=== PATIENT | female | born 1955 | race Caucasian/White ===

== ENCOUNTER → 2023-07-14 07:29 | Outpatient (REF) | payer MEDICARE, OTHER, SELFPAY ==
[2023-07-14 08:28] LABS: HDL Cholesterol 65 mg/dl; LDL Cholesterol, Calculated 219 mg/dl; Total Cholesterol 315 mg/dl (50-199); Triglyceride 155 mg/dl (10-149); Very Low Density Lipoprotein 31 mg/dl (0-30)
== END ==
LOC: REG 07:29
PROVIDERS: ATTENDING PHYSICIAN Internal Medicine Cardiovascular Disease; FAMILY PHYSICIAN Family Medicine
DX: E78.2 Mixed hyperlipidemia (principal)
CPT/HCPCS: 36415; 80061

== ENCOUNTER → 2023-07-18 09:19 | Outpatient (REF) | payer MEDICARE, OTHER, SELFPAY | LOC: DHCBS MAIN 09:19 | PROVIDERS: ATTENDING PHYSICIAN Internal Medicine Cardiovascular Disease; FAMILY PHYSICIAN Internal Medicine | DX: R06.09 Other forms of dyspnea (principal) | CPT/HCPCS: 93306 ==

== ENCOUNTER → 2023-08-07 07:30 | Outpatient (REF) | payer MEDICARE, OTHER, SELFPAY | LOC: RAD 07:30 | PROVIDERS: ATTENDING PHYSICIAN Internal Medicine Critical Care Medicine; FAMILY PHYSICIAN Family Medicine | DX: R91.8 Other nonspecific abnormal finding of lung field (principal) | CPT/HCPCS: 71250 ==

== ENCOUNTER → 2023-08-15 10:21 | Outpatient (REF) | payer MEDICARE, OTHER, SELFPAY | LOC: RAD 10:21 | PROVIDERS: ATTENDING PHYSICIAN Internal Medicine Rheumatology; FAMILY PHYSICIAN Family Medicine | DX: M81.0 Age-related osteoporosis without current pathological fracture (principal) | CPT/HCPCS: 77080 ==

== ENCOUNTER → 2023-08-22 14:04 | Outpatient (REF) | payer MEDICARE, OTHER, SELFPAY | LOC: RAD 14:04 | PROVIDERS: ATTENDING PHYSICIAN Obstetrics & Gynecology Gynecologic Oncology; FAMILY PHYSICIAN Family Medicine | DX: C50.912 Malignant neoplasm of unspecified site of left female breast (principal); D50.9 Iron deficiency anemia, unspecified; Z15.01 Genetic susceptibility to malignant neoplasm of breast; Z15.02 Genetic susceptibility to malignant neoplasm of ovary; Z12.4 Encounter for screening for malignant neoplasm of cervix; R19.00 Intra-abdominal and pelvic swelling, mass and lump, unspecified site | CPT/HCPCS: 74177; Q9967 ==

== ENCOUNTER → 2023-08-24 07:52 | Outpatient (REF) | payer MEDICARE, OTHER, SELFPAY ==
[2023-08-24 08:51] LABS: % Basophils 1.1 % (0-2); % Eosinophils 7.8 % (0-6); % Immature Granulocytes 0.1 % (0-0.5); % Lymphocytes 23.6 % (20.5-51.1); % Monocytes 10.6 % (1.7-9.3); % Neutrophils 56.8 % (42.2-75.2); Absolute Basophils 0.1 10^3/uL (0-0.2); Absolute Eosinophils 0.6 10^3/uL (0-0.7); Absolute Lymphocytes 1.8 10^3/uL (1.2-3.4); Absolute Monocytes 0.8 10^3/uL (0.1-0.6); Absolute Neutrophils 4.3 10^3/uL (1.4-6.5); Hematocrit 40.5 % (37.0-47.0); Mean Corp Hgb Conc. 34.6 g/dL (33.0-37.0); Mean Corpuscular Hgb 30.1 pg (27.0-31.0); Mean Corpuscular Volume 87.1 fL (81.0-99.0); Mean Platelet Volume 10.6 fL (7.4-10.4); Nucleated Red Blood Cells % 0 %; Platelet Count 289 10^3/uL (130-400); Red Blood Cell Count 4.65 10^6/uL (4.20-5.40); Red Cell Dist. Width 13.5 % (11.5-14.5); White Blood Cell Count 7.5 10^3/uL (4.8-10.8)
[2023-08-24 09:42] LABS: ALT (SGPT) 23 U/L (0-35); AST (SGOT) 26 U/L (14-36); Albumin 4.4 g/dl (3.5-5.0); Alkaline Phosphatase 63 U/L (38-126); Blood Urea Nitrogen 22 mg/dl (7-17); Calcium 9.7 mg/dl (8.4-10.2); Carbon Dioxide 26 mmol/L (22-30); Chloride 105 mmol/L (98-107); Glucose 126 mg/dl (70-99); HDL Cholesterol 76 mg/dl; LDL Cholesterol, Calculated 224 mg/dl; Sodium 139 mmol/L (135-145); Total Bilirubin 0.5 mg/dl (0.2-1.3); Total Cholesterol 322 mg/dl (50-199); Total Protein 7.5 g/dl (6.3-8.2); Triglyceride 112 mg/dl (10-149); Very Low Density Lipoprotein 22 mg/dl (0-30); eGFR > 60.00
[2023-08-24 09:48] LABS: Free T4 1.31 ng/dl (0.78-2.19); Potassium 4.5 mmol/L (3.5-5.1)
[2023-08-24 13:15] LABS: Glycohemoglobin (HgbA1c) 6.1 % (4.0-5.6)
[2023-08-24 19:25] LABS: CA 125 9.5 U/mL (0-35)
== END ==
LOC: REG 07:52
PROVIDERS: ATTENDING PHYSICIAN Internal Medicine Cardiovascular Disease; FAMILY PHYSICIAN Family Medicine; REFERRING PHYSICIAN Obstetrics & Gynecology Gynecologic Oncology
DX: C50.912 Malignant neoplasm of unspecified site of left female breast (principal); D50.9 Iron deficiency anemia, unspecified; Z15.01 Genetic susceptibility to malignant neoplasm of breast; Z12.4 Encounter for screening for malignant neoplasm of cervix; R19.00 Intra-abdominal and pelvic swelling, mass and lump, unspecified site; E78.49 Other hyperlipidemia; Z15.09 Genetic susceptibility to other malignant neoplasm; E04.1 Nontoxic single thyroid nodule; R73.01 Impaired fasting glucose; R97.1 Elevated cancer antigen 125 [CA 125]
CPT/HCPCS: 36415; 80053; 80061; 82248; 83036; 84439; 84443; 85025; 86304

== ENCOUNTER → 2023-08-28 12:42 | Outpatient (REF) | payer MEDICARE, OTHER, SELFPAY | LOC: HWRAD 12:42 | PROVIDERS: ATTENDING PHYSICIAN Obstetrics & Gynecology Gynecologic Oncology; FAMILY PHYSICIAN Family Medicine | DX: C50.912 Malignant neoplasm of unspecified site of left female breast (principal); D50.9 Iron deficiency anemia, unspecified; Z15.01 Genetic susceptibility to malignant neoplasm of breast; Z15.02 Genetic susceptibility to malignant neoplasm of ovary; Z12.4 Encounter for screening for malignant neoplasm of cervix; R19.00 Intra-abdominal and pelvic swelling, mass and lump, unspecified site | CPT/HCPCS: 76830; 76856 ==

== ENCOUNTER → 2023-10-12 07:04 | Outpatient (REF) | payer MEDICARE, OTHER, SELFPAY ==
[2023-10-12] MEDS: LEXISCAN 0.400000000000000022 MG IV (09:06)
== END ==
LOC: RCS 07:04
PROVIDERS: ATTENDING PHYSICIAN Internal Medicine Cardiovascular Disease; FAMILY PHYSICIAN Family Medicine
DX: Z01.810 Encounter for preprocedural cardiovascular examination (principal); I10 Essential (primary) hypertension; I44.2 Atrioventricular block, complete; Z95.0 Presence of cardiac pacemaker
CPT/HCPCS: 78452; 93017; A9500; J2785

== ENCOUNTER 2023-10-31 05:50 | Day surgery (SDC) | payer MEDICARE, OTHER, SELFPAY ==
[2023-10-31] VITALS (13 sets, daily range): BP systolic 106–137; BP diastolic 53–82; BMI 29.2
[2023-10-31] MEDS: NORMOSOL-R 1000 IV (06:25)
[2023-10-31] MEDS: MOBIC 15 MG PO (06:27)
[2023-10-31] MEDS: TYLENOL 1000 MG PO (06:27)
[2023-10-31] MEDS: NEURONTIN 300 MG PO (06:27)
[2023-10-31] MEDS: HEPARIN 5000 UNITS SC (06:29)
[2023-10-31 06:52] LABS: Hematocrit 42.5 % (37.0-47.0); Hemoglobin 14.4 g/dL (12.0-16.0); Mean Corp Hgb Conc. 33.9 g/dL (33.0-37.0); Mean Corpuscular Hgb 30.1 pg (27.0-31.0); Mean Corpuscular Volume 88.9 fL (81.0-99.0); Mean Platelet Volume 10.6 fL (7.4-10.4); Platelet Count 221 10^3/uL (130-400); Red Blood Cell Count 4.78 10^6/uL (4.20-5.40); Red Cell Dist. Width 14.2 % (11.5-14.5); White Blood Cell Count 9.1 10^3/uL (4.8-10.8)
[2023-10-31] MEDS: TRANSDERM-SCOP 1 PATCH TRANSDERM (06:53)
--- NOTE | 2023-10-31 08:38 | OR.RPT ---
Operative Report
Operative Report
Pre Op Diagnosis: BRCA1 Mutation, Desire for Risk reducing surgery
Post Op Diagnosis: same
Procedure: Laparocopic Bilateral salpingo oophorectomy, washings, Dilation and curettage
Surgeon: Reggie Multani MD
Patrol Agent: Dimitri Wade PA-C
Anesthesia General
Procedure in detail: This patient was brought to the operating room for risk reducing salpingo-oophorectomy. Upon arrival to the operating room she was placed in supine position, general anesthesia was administered she was intubated without any
difficulty. She was placed in lithotomy position using yellowfin stirrups. She was prepped on the abdomen perineum and vagina, arms were wrapped in padding and tucked along the sides. The patient was draped. Timeout procedure was carried out.
She received Ancef prophylactically and had received DVT prophylaxis with heparin. Will catheter was placed under sterile condition to drain the bladder. The cervix was visualized and grasped on the anterior lip. Cervical canal was dilated, the
uterus sounded to 7-1/2 cm. Sharp curettage of the endometrial cavity was obtained and a small polyp was removed. Uterine manipulator with a 2.5 cm CHRISTY ring was placed around the cervix. Attention was turned abdominally, the patient has had prior
abdominoplasty. Veress needle was inserted 5 mm skin incision just above the umbilicus. Peritoneal cavity was insufflated with CO2 gas up to pressure of 15 mmHg. 5 mm port was placed and laparoscopic evaluation of the abdomen was performed. In
the upper abdomen both diaphragms are normal, liver spleen right and left paracolic gutters and omentum are normal. Appendix is visualized and is normal. Bilateral tubes and ovaries appear atrophic with no evidence of implants involving pelvic
organs. Uterus appears normal. 5 mm port was placed in the right lower quadrant and at 11 mm port was placed in the left lower quadrant. The adhesions of the sigmoid colon to the left pelvis was taken down. Posterior leaf of the broad ligament
was dissected open bilaterally and the retroperitoneal spaces were identified and we created a window between the ureter and IP ligaments bilaterally. Both IP ligaments were sealed 3 times and divided. Tubes and ovaries were removed in its
entirety down to the cornua of the uterus and sealed and divided from the uterus. They were placed in right and left endoscopic bags and retrieved through the left lower quadrant. Pelvic washings had already been collected. We examined all the
operative sites and establish good hemostasis. We released the pneumoperitoneum. Specimens were handed over to pathology. The fascia in the 11 mm port was closed with a [id number] suture of 0 Vicryl. Skin incisions were closed with 4-0
Monocryl in a subcuticular fashion. Marcaine was injected in all port incisions. Will catheter and uterine manipulator was removed. The patient was awakened extubated and returned back to recovery room stable awake and extubated condition.
Counts of laps instruments and needle was correct x 2. I was present and scrubbed for entire procedure as dictated above.
Surgical count: Correct
Disposition: PACU, stable, extubated
--- NOTE | 2023-10-31 10:46 | PTCARENOTE ---
Patient got up once to void and could not void. Patient dressed and hooked back up to the IV fluids. Patient instructed to increase water/fluid intake. Will monitor patient.
== END 2023-10-31 12:09 | disposition home or self-care (01) ==
LOC: SDS 05:50
PROVIDERS: ATTENDING PHYSICIAN Obstetrics & Gynecology Gynecologic Oncology
DX: Z15.02 Genetic susceptibility to malignant neoplasm of ovary (principal); Z15.01 Genetic susceptibility to malignant neoplasm of breast; C50.912 Malignant neoplasm of unspecified site of left female breast; N73.9 Female pelvic inflammatory disease, unspecified
CPT/HCPCS: 58661; 58120; 88305; 85027; 86850; 86900; 86901; 88112

== ENCOUNTER → 2023-12-07 12:43 | Outpatient (REF) | payer MEDICARE, OTHER, SELFPAY | LOC: HWRAD 12:43 | PROVIDERS: ATTENDING PHYSICIAN Family Medicine | DX: R49.0 Dysphonia (principal); R49.9 Unspecified voice and resonance disorder | CPT/HCPCS: 76536 ==

== ENCOUNTER → 2024-01-11 07:08 | Outpatient (REF) | payer MEDICARE, OTHER, SELFPAY ==
[2024-01-11 08:54] LABS: ALT (SGPT) 30 U/L (0-35); AST (SGOT) 30 U/L (14-36); Albumin 4.3 g/dl (3.5-5.0); Alkaline Phosphatase 73 U/L (38-126); Blood Urea Nitrogen 34 mg/dl (7-17); Calcium 9.9 mg/dl (8.4-10.2); Carbon Dioxide 29 mmol/L (22-30); Chloride 105 mmol/L (98-107); Glucose 118 mg/dl (70-99); HDL Cholesterol 69 mg/dl; LDL Cholesterol, Calculated 67 mg/dl; Potassium 4.5 mmol/L (3.5-5.1); Sodium 140 mmol/L (135-145); Total Bilirubin 0.4 mg/dl (0.2-1.3); Total Cholesterol 163 mg/dl (50-199); Total Protein 6.7 g/dl (6.3-8.2); Triglyceride 135 mg/dl (10-149); Very Low Density Lipoprotein 27 mg/dl (0-30); eGFR > 60.00
== END ==
LOC: REG 07:08
PROVIDERS: ATTENDING PHYSICIAN Internal Medicine Cardiovascular Disease; FAMILY PHYSICIAN Family Medicine
DX: I11.9 Hypertensive heart disease without heart failure (principal); E78.2 Mixed hyperlipidemia; E78.49 Other hyperlipidemia
CPT/HCPCS: 36415; 80053; 80061

== ENCOUNTER → 2024-01-16 13:30 | Outpatient (REF) | payer MEDICARE, OTHER, SELFPAY | LOC: MRI 13:30 | PROVIDERS: ATTENDING PHYSICIAN Surgery; FAMILY PHYSICIAN Family Medicine | DX: Z15.01 Genetic susceptibility to malignant neoplasm of breast (principal); Z15.09 Genetic susceptibility to other malignant neoplasm | CPT/HCPCS: 77049; A9585 ==

== ENCOUNTER → 2024-03-14 09:09 | Outpatient (REF) | payer MEDICARE, OTHER, SELFPAY | LOC: RAD 09:09 | PROVIDERS: ATTENDING PHYSICIAN Internal Medicine Critical Care Medicine; FAMILY PHYSICIAN Family Medicine | DX: R91.8 Other nonspecific abnormal finding of lung field (principal) | CPT/HCPCS: 71250 ==

== ENCOUNTER → 2024-04-18 09:06 | Outpatient (REF) | payer MEDICARE, OTHER, SELFPAY | LOC: HWWDC 09:06 | PROVIDERS: ATTENDING PHYSICIAN Surgery; FAMILY PHYSICIAN Family Medicine; REFERRING PHYSICIAN Internal Medicine Hematology & Oncology | DX: Z12.31 Encounter for screening mammogram for malignant neoplasm of breast (principal) | CPT/HCPCS: 77063; 77067 ==

== ENCOUNTER → 2024-07-05 07:19 | Outpatient (REF) | payer MEDICARE, OTHER, SELFPAY ==
[2024-07-05 08:29] LABS: Urine Albumin Trace (Neg - Trace); Urine Bilirubin Negative (Negative); Urine Character Clear (Clear); Urine Color Yellow; Urine Glucose Negative (Negative); Urine Ketone Negative (Negative); Urine Leukocyte Trace (Negative); Urine Nitrite Negative (Negative); Urine Occult Blood Negative (Negative); Urine Specific Gravity 1.025 (<1.030); Urine Urobilinogen Negative (Neg - 1+)
[2024-07-05 08:30] LABS: % Basophils 0.9 % (0-2); % Eosinophils 8.9 % (0-6); % Immature Granulocytes 0.2 % (0-0.5); % Lymphocytes 23.6 % (20.5-51.1); % Monocytes 13.4 % (1.7-9.3); Absolute Basophils 0.1 10^3/uL (0-0.2); Absolute Eosinophils 0.8 10^3/uL (0-0.7); Absolute Lymphocytes 2.1 10^3/uL (1.2-3.4); Absolute Monocytes 1.2 10^3/uL (0.1-0.6); Absolute Neutrophils 4.6 10^3/uL (1.4-6.5); Hematocrit 42.5 % (37.0-47.0); Hemoglobin 14.1 g/dL (12.0-16.0); Mean Corp Hgb Conc. 33.2 g/dL (33.0-37.0); Mean Corpuscular Hgb 29.4 pg (27.0-31.0); Mean Corpuscular Volume 88.7 fL (81.0-99.0); Mean Platelet Volume 11.1 fL (7.4-10.4); Nucleated Red Blood Cells % 0 %; Platelet Count 313 10^3/uL (130-400); Red Blood Cell Count 4.79 10^6/uL (4.20-5.40); Red Cell Dist. Width 13.5 % (11.5-14.5); White Blood Cell Count 8.7 10^3/uL (4.8-10.8)
[2024-07-05 08:53] LABS: ALT (SGPT) 24 U/L (0-35); AST (SGOT) 24 U/L (14-36); Albumin 4.5 g/dl (3.5-5.0); Alkaline Phosphatase 78 U/L (38-126); Blood Urea Nitrogen 27 mg/dl (7-17); Calcium 10.2 mg/dl (8.4-10.2); Carbon Dioxide 29 mmol/L (22-30); Chloride 101 mmol/L (98-107); Glucose 125 mg/dl (70-99); HDL Cholesterol 68 mg/dl; LDL Cholesterol, Calculated 84 mg/dl; Sodium 142 mmol/L (135-145); Total Bilirubin 0.4 mg/dl (0.2-1.3); Total Cholesterol 186 mg/dl (50-199); Total Protein 7.5 g/dl (6.3-8.2); Triglyceride 174 mg/dl (10-149); Very Low Density Lipoprotein 34 mg/dl (0-30); eGFR > 60.00
[2024-07-05 08:54] LABS: Urine Squamous Cell 16-20 /LPF (Few)
[2024-07-05 08:55] LABS: Urine Bacteria Few (Negative); Urine Red Blood Cell 0-2 /HPF (0-2)
[2024-07-05 08:56] LABS: Urine Mucus Moderate; Urine White Cell 0-2 /HPF (0-5)
[2024-07-05 09:11] LABS: FSH 40.5 mIU/ml; Free T4 1.46 ng/dl (0.78-2.19); Vitamin D, 25-OH*** 42.9 ng/mL (30-80)
[2024-07-05 09:24] LABS: TSH 0.49 uIU/ml (0.47-4.68)
[2024-07-05 09:25] LABS: Estradiol 19.5 pg/ml
[2024-07-05 09:26] LABS: Cortisol, Random 13.2 ug/dl
[2024-07-05 09:45] LABS: Glycohemoglobin (HgbA1c) 5.9 % (4.0-5.6)
== END ==
LOC: REG 07:19
PROVIDERS: ATTENDING PHYSICIAN Family Medicine
DX: R53.83 Other fatigue (principal); Z90.722 Acquired absence of ovaries, bilateral; R82.90 Unspecified abnormal findings in urine; E06.3 Autoimmune thyroiditis; E78.2 Mixed hyperlipidemia; R73.09 Other abnormal glucose; R73.01 Impaired fasting glucose; R79.89 Other specified abnormal findings of blood chemistry; Z79.899 Other long term (current) drug therapy
CPT/HCPCS: 36415; 80053; 80061; 81003; 81015; 82306; 82533; 82670; 83001; 83002; 83036; 84439; 84443; 84481; 85025

== ENCOUNTER → 2024-09-13 07:14 | Outpatient (REF) | payer MEDICARE, OTHER, SELFPAY ==
[2024-09-13 08:34] LABS: % Eosinophils 6.3 % (0-6); % Immature Granulocytes 0.3 % (0-0.5); % Lymphocytes 26.3 % (20.5-51.1); % Monocytes 10.9 % (1.7-9.3); % Neutrophils 55.2 % (42.2-75.2); Absolute Basophils 0.1 10^3/uL (0-0.2); Absolute Eosinophils 0.5 10^3/uL (0-0.7); Absolute Monocytes 0.8 10^3/uL (0.1-0.6); Absolute Neutrophils 4.2 10^3/uL (1.4-6.5); Hematocrit 40.6 % (37.0-47.0); Hemoglobin 14.1 g/dL (12.0-16.0); Mean Corp Hgb Conc. 34.7 g/dL (33.0-37.0); Mean Corpuscular Hgb 30.1 pg (27.0-31.0); Mean Corpuscular Volume 86.6 fL (81.0-99.0); Mean Platelet Volume 11.6 fL (7.4-10.4); Nucleated Red Blood Cells % 0 %; Platelet Count 354 10^3/uL (130-400); Red Blood Cell Count 4.69 10^6/uL (4.20-5.40); Red Cell Dist. Width 13.7 % (11.5-14.5); White Blood Cell Count 7.7 10^3/uL (4.8-10.8)
[2024-09-13 09:30] LABS: ALT (SGPT) 23 U/L (0-35); AST (SGOT) 25 U/L (14-36); Albumin 4.8 g/dl (3.5-5.0); Alkaline Phosphatase 62 U/L (38-126); Blood Urea Nitrogen 20 mg/dl (7-17); Calcium 10.6 mg/dl (8.4-10.2); Carbon Dioxide 28 mmol/L (22-30); Chloride 105 mmol/L (98-107); Glucose 96 mg/dl (70-99); Potassium 3.9 mmol/L (3.5-5.1); Sodium 144 mmol/L (135-145); Total Bilirubin 0.6 mg/dl (0.2-1.3); Total Protein 7.3 g/dl (6.3-8.2); eGFR > 60.00
[2024-09-13 10:11] LABS: Free T4 1.48 ng/dl (0.78-2.19)
[2024-09-13 10:25] LABS: TSH 1.39 uIU/ml (0.47-4.68)
== END ==
LOC: RCS 07:14
PROVIDERS: ATTENDING PHYSICIAN Nurse Practitioner Family; FAMILY PHYSICIAN Family Medicine; REFERRING PHYSICIAN Internal Medicine Hematology & Oncology
DX: G47.33 Obstructive sleep apnea (adult) (pediatric) (principal); I10 Essential (primary) hypertension; R00.2 Palpitations
CPT/HCPCS: 36415; 80053; 84439; 84443; 85025; 93005

== ENCOUNTER → 2024-10-14 09:42 | Outpatient (REF) | payer MEDICARE, OTHER, SELFPAY | LOC: WDC 09:42 | PROVIDERS: ATTENDING PHYSICIAN Internal Medicine Hematology & Oncology; FAMILY PHYSICIAN Family Medicine | DX: Z15.01 Genetic susceptibility to malignant neoplasm of breast (principal) | CPT/HCPCS: 76641 ==

== ENCOUNTER → 2024-10-30 07:21 | Outpatient (REF) | payer MEDICARE, OTHER, SELFPAY ==
[2024-10-30 08:26] LABS: % Basophils 0.6 % (0-2); % Eosinophils 8.1 % (0-6); % Immature Granulocytes 0.3 % (0-0.5); % Lymphocytes 23.8 % (20.5-51.1); % Monocytes 9.9 % (1.7-9.3); % Neutrophils 57.3 % (42.2-75.2); Absolute Basophils 0.1 10^3/uL (0-0.2); Absolute Eosinophils 0.8 10^3/uL (0-0.7); Absolute Lymphocytes 2.3 10^3/uL (1.2-3.4); Absolute Neutrophils 5.5 10^3/uL (1.4-6.5); Hematocrit 40.5 % (37.0-47.0); Hemoglobin 13.7 g/dL (12.0-16.0); Mean Corp Hgb Conc. 33.8 g/dL (33.0-37.0); Mean Corpuscular Hgb 30.1 pg (27.0-31.0); Mean Platelet Volume 11.7 fL (7.4-10.4); Nucleated Red Blood Cells % 0 %; Platelet Count 275 10^3/uL (130-400); Red Blood Cell Count 4.55 10^6/uL (4.20-5.40); Red Cell Dist. Width 13.6 % (11.5-14.5); White Blood Cell Count 9.7 10^3/uL (4.8-10.8)
[2024-10-30 09:27] LABS: ALT (SGPT) 29 U/L (0-35); AST (SGOT) 26 U/L (14-36); Albumin 4.5 g/dl (3.5-5.0); Alkaline Phosphatase 55 U/L (38-126); Direct Bilirubin 0.1 mg/dl (0.0-0.4); Total Bilirubin 0.6 mg/dl (0.2-1.3)
== END ==
LOC: REG 07:21
PROVIDERS: ATTENDING PHYSICIAN Internal Medicine Hematology & Oncology; FAMILY PHYSICIAN Family Medicine
DX: C50.912 Malignant neoplasm of unspecified site of left female breast (principal); D50.9 Iron deficiency anemia, unspecified; Z15.01 Genetic susceptibility to malignant neoplasm of breast; Z15.02 Genetic susceptibility to malignant neoplasm of ovary; Z12.4 Encounter for screening for malignant neoplasm of cervix; R19.00 Intra-abdominal and pelvic swelling, mass and lump, unspecified site; R91.8 Other nonspecific abnormal finding of lung field; N95.2 Postmenopausal atrophic vaginitis
CPT/HCPCS: 36415; 80076; 85025

== ENCOUNTER → 2025-01-27 07:54 | Outpatient (REF) | payer MEDICARE, OTHER, SELFPAY ==
[2025-01-27 09:49] LABS: ALT (SGPT) 41 U/L (0-35); AST (SGOT) 32 U/L (14-36); Albumin 4.3 g/dl (3.5-5.0); Alkaline Phosphatase 55 U/L (38-126); Blood Urea Nitrogen 26 mg/dl (7-17); Calcium 9.9 mg/dl (8.4-10.2); Carbon Dioxide 26 mmol/L (22-30); Chloride 108 mmol/L (98-107); Glucose 108 mg/dl (70-99); HDL Cholesterol 64 mg/dl; LDL Cholesterol, Calculated 133 mg/dl; Potassium 4.6 mmol/L (3.5-5.1); Sodium 140 mmol/L (135-145); Total Protein 6.9 g/dl (6.3-8.2); Very Low Density Lipoprotein 26 mg/dl (0-30); eGFR > 60.00
[2025-01-27 10:35] LABS: Glycohemoglobin (HgbA1c) 5.4 % (4.0-5.6)
== END ==
LOC: REG 07:54
PROVIDERS: ATTENDING PHYSICIAN Family Medicine
DX: E78.2 Mixed hyperlipidemia (principal); I10 Essential (primary) hypertension; R73.01 Impaired fasting glucose
CPT/HCPCS: 36415; 80053; 80061; 83036

== ENCOUNTER → 2025-02-25 09:49 | Outpatient (REF) | payer MEDICARE, OTHER, SELFPAY ==
[2025-02-25 11:14] LABS: TSH 0.37 uIU/ml (0.47-4.68)
== END ==
LOC: REG 09:49
PROVIDERS: ATTENDING PHYSICIAN Internal Medicine Rheumatology; FAMILY PHYSICIAN Family Medicine; REFERRING PHYSICIAN Nurse Practitioner Family
DX: E06.3 Autoimmune thyroiditis (principal); G89.29 Other chronic pain; M19.019 Primary osteoarthritis, unspecified shoulder; M77.8 Other enthesopathies, not elsewhere classified; M81.0 Age-related osteoporosis without current pathological fracture
CPT/HCPCS: 36415; 73030; 84439; 84443

== ENCOUNTER → 2025-03-18 09:20 | Outpatient (REF) | payer MEDICARE, OTHER, SELFPAY | LOC: HWRAD 09:20 | PROVIDERS: ATTENDING PHYSICIAN Internal Medicine Critical Care Medicine; FAMILY PHYSICIAN Family Medicine; REFERRING PHYSICIAN Internal Medicine Hematology & Oncology | DX: R91.8 Other nonspecific abnormal finding of lung field (principal) | CPT/HCPCS: 71250 ==

== ENCOUNTER 2025-04-11 09:24 | Outpatient (RCR) | payer MEDICARE, OTHER, SELFPAY | END 2025-04-11 23:59 | disposition home or self-care (01) | LOC: RPT 09:24 | PROVIDERS: ATTENDING PHYSICIAN Internal Medicine Rheumatology; FAMILY PHYSICIAN Family Medicine | DX: M25.511 Pain in right shoulder (principal); Z73.6 Limitation of activities due to disability; M62.81 Muscle weakness (generalized); W18.39XD Other fall on same level, subsequent encounter | CPT/HCPCS: 97010; 97110; 97140; 97162 ==

== ENCOUNTER → 2025-04-22 07:36 | Outpatient (REF) | payer MEDICARE, OTHER, SELFPAY ==
[2025-04-22 08:46] LABS: Hematocrit 40.9 % (37.0-47.0); Hemoglobin 14.0 g/dL (12.0-16.0); Mean Corp Hgb Conc. 34.2 g/dL (33.0-37.0); Mean Corpuscular Volume 89.1 fL (81.0-99.0); Nucleated Red Blood Cells % 0 %; Platelet Count 273 10^3/uL (130-400); Red Cell Dist. Width 13.2 % (11.5-14.5)
[2025-04-22 09:17] LABS: ALT (SGPT) 28 U/L (0-35); AST (SGOT) 25 U/L (14-36); Albumin 4.5 g/dl (3.5-5.0); Alkaline Phosphatase 54 U/L (38-126); Total Protein 7.3 g/dl (6.3-8.2)
[2025-04-22 09:43] LABS: TSH 1.76 uIU/ml (0.47-4.68)
== END ==
LOC: REG 07:36
PROVIDERS: ATTENDING PHYSICIAN Internal Medicine Hematology & Oncology; FAMILY PHYSICIAN Family Medicine; OTHER PHYSICIAN Nurse Practitioner Family
DX: E06.3 Autoimmune thyroiditis (principal); C50.912 Malignant neoplasm of unspecified site of left female breast; D50.9 Iron deficiency anemia, unspecified; Z15.01 Genetic susceptibility to malignant neoplasm of breast; Z15.02 Genetic susceptibility to malignant neoplasm of ovary; Z12.4 Encounter for screening for malignant neoplasm of cervix; R19.00 Intra-abdominal and pelvic swelling, mass and lump, unspecified site; R91.8 Other nonspecific abnormal finding of lung field; N95.2 Postmenopausal atrophic vaginitis
CPT/HCPCS: 36415; 80076; 84439; 84443; 85025

== ENCOUNTER 2025-04-25 12:09 | Outpatient (RCR) | payer MEDICARE, OTHER, SELFPAY | END 2025-04-25 23:59 | disposition home or self-care (01) | LOC: RPT 12:09 | PROVIDERS: ATTENDING PHYSICIAN Internal Medicine Rheumatology; FAMILY PHYSICIAN Family Medicine | DX: M25.511 Pain in right shoulder (principal); Z73.6 Limitation of activities due to disability; M62.81 Muscle weakness (generalized); W18.39XD Other fall on same level, subsequent encounter | CPT/HCPCS: 97010; 97110; 97140 ==

== ENCOUNTER → 2025-04-25 13:32 | Outpatient (REF) | payer MEDICARE, OTHER, SELFPAY | LOC: RCS 13:32 | PROVIDERS: ATTENDING PHYSICIAN Internal Medicine Cardiovascular Disease; FAMILY PHYSICIAN Family Medicine | DX: Z95.0 Presence of cardiac pacemaker (principal); C50.919 Malignant neoplasm of unspecified site of unspecified female breast | CPT/HCPCS: 93306; 93356 ==

== ENCOUNTER → 2025-04-29 07:27 | Outpatient (REF) | payer MEDICARE, OTHER, SELFPAY ==
[2025-04-29 08:42] LABS: Urine Character Clear (Clear)
[2025-04-29 08:44] LABS: Hematocrit 37.7 % (37.0-47.0); Hemoglobin 12.8 g/dL (12.0-16.0); Mean Corp Hgb Conc. 34.0 g/dL (33.0-37.0); Mean Corpuscular Volume 87.7 fL (81.0-99.0); Nucleated Red Blood Cells % 0 %; Platelet Count 286 10^3/uL (130-400); Red Cell Dist. Width 13.1 % (11.5-14.5)
[2025-04-29 09:13] LABS: ALT (SGPT) 27 U/L (0-35); AST (SGOT) 26 U/L (14-36); Albumin 4.2 g/dl (3.5-5.0); Alkaline Phosphatase 54 U/L (38-126); Blood Urea Nitrogen 25 mg/dl (7-17); Calcium 9.5 mg/dl (8.4-10.2); Carbon Dioxide 29 mmol/L (22-30); Chloride 103 mmol/L (98-107); Glucose 100 mg/dl (70-99); Magnesium 1.9 mg/dl (1.6-2.3); Potassium 4.0 mmol/L (3.5-5.1); Sodium 137 mmol/L (135-145); Total Protein 6.5 g/dl (6.3-8.2); eGFR > 60.00
[2025-04-29 09:20] LABS: C-Reactive Protein < 5.00 mg/L (0.0-10.00)
[2025-04-29 09:23] LABS: Urine Red Blood Cell 0-2 /HPF (0-2)
[2025-05-01 02:30] LABS: Serine Protease-3, IgG 4 AU/mL (0-19)
[2025-05-01 10:33] LABS: Rheumatoid Agglutinin Less Than 10 IU (<10 IU)
[2025-05-02 08:20] LABS: ANA, IgG Reflex to HEp-2 None Detected (None Detected)
== END ==
LOC: REG 07:27
PROVIDERS: ATTENDING PHYSICIAN Family Medicine
DX: I73.00 Raynaud's syndrome without gangrene (principal); M79.674 Pain in right toe(s); M79.675 Pain in left toe(s); S90.42 Blister (nonthermal) of toe
CPT/HCPCS: 36415; 80053; 81003; 81015; 83516; 83735; 85025; 85652; 86038; 86140; 86235; 86430

== ENCOUNTER → 2025-05-07 14:54 | Outpatient (REF) | payer MEDICARE, OTHER, SELFPAY | LOC: HWRAD 14:54 | PROVIDERS: ATTENDING PHYSICIAN Family Medicine | DX: I73.00 Raynaud's syndrome without gangrene (principal); M79.89 Other specified soft tissue disorders | CPT/HCPCS: 76705 ==

== ENCOUNTER → 2025-05-12 08:35 | Outpatient (REF) | payer MEDICARE, OTHER, SELFPAY ==
[2025-05-12 09:40] LABS: Urine Character Slightly Cloudy (Clear)
[2025-05-12 09:50] LABS: Urine White Cell 16-20 /HPF (0-5)
== END ==
LOC: REG 08:35
PROVIDERS: ATTENDING PHYSICIAN Family Medicine
DX: R80.9 Proteinuria, unspecified (principal)
CPT/HCPCS: 81003; 81015

== ENCOUNTER → 2025-05-12 19:20 | Outpatient (REF) | payer MEDICARE, OTHER, SELFPAY | LOC: WDC 19:20 | PROVIDERS: ATTENDING PHYSICIAN Surgery; FAMILY PHYSICIAN Family Medicine | DX: Z15.01 Genetic susceptibility to malignant neoplasm of breast (principal); Z12.39 Encounter for other screening for malignant neoplasm of breast; Z12.31 Encounter for screening mammogram for malignant neoplasm of breast | CPT/HCPCS: 77063; 77067 ==

== ENCOUNTER 2025-05-15 06:45 | Outpatient (RCR) | payer MEDICARE, OTHER, SELFPAY | END 2025-05-15 09:48 | disposition home or self-care (01) | LOC: RPT 06:45 | PROVIDERS: ATTENDING PHYSICIAN Internal Medicine Rheumatology; FAMILY PHYSICIAN Family Medicine | DX: M25.511 Pain in right shoulder (principal); Z73.6 Limitation of activities due to disability; M62.81 Muscle weakness (generalized); W18.39XD Other fall on same level, subsequent encounter | CPT/HCPCS: 97110 ==

== ENCOUNTER → 2025-05-15 07:58 | Outpatient (REF) | payer MEDICARE, OTHER, SELFPAY | LOC: RAD 07:58 | PROVIDERS: ATTENDING PHYSICIAN Family Medicine | DX: I73.00 Raynaud's syndrome without gangrene (principal); M79.89 Other specified soft tissue disorders | CPT/HCPCS: 93925 ==